=== PATIENT | female | born 1960 | race Caucasian/White ===

== ENCOUNTER 2020-03-12 11:46 | Outpatient (CLI) | payer MEDICAID, SELFPAY ==
--- NOTE | 2020-03-12 11:00 | DI.RAD_ITS ---
EXAM: XR KNEE RT 2V AP,LAT INDICATION: painful L TKA. COMPARISON: CR RIGHT KNEE LIMITED 1 OR 2 VIEW from 08/14/2010 TECHNIQUE: 2D digital imaging was performed. FINDINGS: There has been no change in the right knee prosthesis there in differences in projection. No abnorma l bony lucencies are seen. Vascular calcifications are noted. DATA REPOSITORY: RADIATION DOSE DELIVERED:
== END 2020-03-12 12:06 ==
PROVIDERS: PCP Family Medicine; Referring Provider Family Medicine; Visit Provider Physician Assistant
DX: Z96.651 Presence of right artificial knee joint (principal); T84.84XA Pain due to internal orthopedic prosthetic devices, implants and grafts, initial encounter
CPT/HCPCS: 73560